=== PATIENT | female | born 1995 | race Two or more races ===

== ENCOUNTER 2017-01-13 12:24 | Inpatient (IN) | payer BC, MEDICAID ==
[~2017-01-13] VITALS: Ht 154.9 cm; Wt 72.7 kg
[~2017-01-13 12:24] MED LIST: None per pt.
[2017-01-13] MEDS ORDERED: OXYTOCIN 30U/ 0.9% NaCL 500ML 500 ML IV PRN (13:23)
[2017-01-13] MEDS ORDERED: LACTATED RINGERS 1,000 ML IV SCH ×2 (13:23→13:50)
[2017-01-13] MEDS ORDERED: OXYTOCIN 30U/ 0.9% NaCL 500ML 500 ML IV ONE (13:23)
[2017-01-13] MEDS ORDERED: PREN1TAB25 PO (13:23)
[2017-01-13] MEDS ORDERED: D5%-LACTATED RINGERS 1,000 ML IV SCH (13:23)
[2017-01-13 13:30] VITALS: BP 127/63
[2017-01-13] MEDS ORDERED: CALCIUM CARBONATE 500 MG TAB.CHEW PO PRN ×2 (13:30→19:30)
[2017-01-13] MEDS ORDERED: FENTANYL PF 100 MCG/2ML IVPush PRN (13:30)
[2017-01-13] MEDS ORDERED: ONDANSETRON 2MG/ML, 2ML IVPush PRN (13:30)
[2017-01-13 13:44] LABS: HEMOGLOBIN 13.9 g/dL (11.7-16.4)
[2017-01-13] MEDS ORDERED: FENTANYL/BUPIV./NS/PF 250 ML EPIDCONT SCH (13:50)
[2017-01-13] MEDS ORDERED: LIDOCAINE 1%, 20ML ONE (13:56)
[2017-01-13] MEDS ORDERED: NEWBORN KIT ONE (13:57)
[2017-01-13] MEDS ORDERED: MISOPROSTOL 200 MCG TABLET ONE (13:57)
[2017-01-13] MEDS ORDERED: OXYTOCIN 30U/ 0.9% NaCL 500ML 500 ML ONE (13:57)
[2017-01-13] MEDS ORDERED: EPHEDRINE 50 MG/ML, 1ML IVPush PRN (14:00)
[2017-01-13] MEDS ORDERED: LACTATED RINGERS 1,000 ML IVBOLUS PRN (14:00)
[2017-01-13] MEDS ORDERED: OXYcodone/APAP 5/325MG TABLET PO PRN ×2 (19:30)
[2017-01-13] MEDS ORDERED: ACETAMINOPHEN 325 MG TABLET PO PRN ×3 (19:30)
[2017-01-13] MEDS ORDERED: DOCUSATE 100 MG CAPSULE PO PRN (19:30)
[2017-01-13] MEDS ORDERED: CARBOPROST TROMETHAMINE 250 MCG/ML, 1ML IM PRN (19:30)
[2017-01-13] MEDS ORDERED: GLYCERIN ADULT SUPP PR PRN (19:30)
[2017-01-13] MEDS ORDERED: METHYLERGONOVINE 0.2 MG/ML IM PRN (19:30)
[2017-01-13] MEDS ORDERED: MAGNESIUM HYDROXIDE 8%, 30ML UDC PO PRN (19:30)
[2017-01-13] MEDS ORDERED: ONDANSETRON 2MG/ML, 2ML IV PRN (19:30)
[2017-01-13] MEDS ORDERED: MISOPROSTOL 200 MCG TABLET PR PRN (19:30)
[2017-01-13] MEDS ORDERED: IBUPROFEN 600 MG TABLET PO PRN (19:30)
[2017-01-13] MEDS ORDERED: BISACODYL 10 MG SUPP PR PRN (19:30)
[2017-01-13] MEDS ORDERED: IBUPROFEN 600 MG TABLET ONE (20:04)
[2017-01-13 22:10] VITALS: BP 112/55
[2017-01-13] MEDS: OXYTOCIN 30U/ 0.9% NaCL 500ML 500 ML IV SCH (22:10)
[2017-01-14 00:34] VITALS: BP 104/53
[2017-01-14 04:15] VITALS: BP 104/55
[2017-01-14] MEDS: OXYTOCIN 30U/ 0.9% NaCL 500ML 500 ML IV SCH (05:22)
[2017-01-14 06:12] VITALS: BP 107/63
[2017-01-14] MEDS ORDERED: PRENATAL VIT/IRON/FA 1 EACH TABLET PO SCH (09:00)
[2017-01-14] MEDS ORDERED: OXYC-302 PO (13:48)
[2017-01-14] MEDS ORDERED: IBUP-1222 PO (13:50)
== END 2017-01-14 17:55 | disposition home or self-care (01) | DRG 775 ==
LOC: LDOP 12:24 → LDIP 13:30 → 2NW 21:51
PROVIDERS: ADMIT Obstetrics & Gynecology; ATTEND Obstetrics & Gynecology
PROC: 10E0XZZ Delivery of Products of Conception, External Approach (ICD-10-PCS; principal; 2017-01-13)
PROC: 0KQM0ZZ Repair Perineum Muscle, Open Approach (ICD-10-PCS; 2017-01-13)
PROC: 10907ZC Drainage of Amniotic Fluid, Therapeutic from Products of Conception, Via Natural or Artificial Opening (ICD-10-PCS; 2017-01-13)
DX: O70.1 Second degree perineal laceration during delivery (principal); Z37.0 Single live birth; Z3A.39 39 weeks gestation of pregnancy
CPT/HCPCS: 36415; 85025; 86850; 86900; J2590; J7120